=== PATIENT | female | born 2000 | race Two or more races ===

== ENCOUNTER 2023-01-08 20:46 | Emergency (ER) | payer MEDICAID ==
[~2023-01-08] VITALS: Ht 167.6 cm; Wt 81.6 kg
--- NOTE | 2023-01-08 21:00 | NUR ---
Dr. Zambrano at bedside for MSE.
[2023-01-08] MEDS ORDERED: KETOROLAC TROMETHAMINE 30 MG INJ IVP ONE (21:15)
[2023-01-08] MEDS ORDERED: diphenhydrAMINE 50 MG/1 ML VIAL IV ONE (21:15)
[2023-01-08] MEDS ORDERED: METOCLOPRAMIDE HCL 10 MG/2 ML VIAL IV ONE (21:15)
[2023-01-08] MEDS ORDERED: IV NS 1000 ML 1,000 ML IV ONE (21:15)
[2023-01-08 21:23] LABS: HEMATOCRIT 40.2 % (31.2-41.9); MEAN CORPUSCULAR HEMOGLOBIN 27.1 uug (24.7-32.8); MEAN CORPUSCULAR VOLUME 82.8 fL (75.5-95.3); PLATELET COUNT (AUTO) 275 K/uL (179-408)
[2023-01-08] MEDS ORDERED: diphenhydrAMINE 50 MG/1 ML VIAL ONE (21:23)
[2023-01-08] MEDS ORDERED: KETOROLAC TROMETHAMINE 30 MG INJ ONE (21:23)
[2023-01-08] MEDS ORDERED: METOCLOPRAMIDE HCL 10 MG/2 ML VIAL ONE (21:23)
[2023-01-08 21:54] LABS: CREATININE 0.8 mg/dL (0.6-1.3); MAGNESIUM 2.1 mg/dL (1.8-2.4); POTASSIUM 3.9 mmol/L (3.5-5.1)
[2023-01-08] MEDS ORDERED: DIPH25CA83 PO (23:08)
[2023-01-08] MEDS ORDERED: METO-295 PO (23:08)
[2023-01-08] MEDS ORDERED: NAPR-1164 PO (23:08)
[2023-01-08] MEDS ORDERED: BLOO-1730 MC (23:14)
--- NOTE | 2023-01-08 23:22 | NUR ---
Patient discharged to home in stable condition. Written and verbal after care instructions given. Patient verbalizes understanding of instructions. Stressed follow up or return to ER for worsening s/s. Patient out of ER with steady gait, no acute signs of distress, VSS, all belongings taken, IV site discontinued, provided with copies of lab results.
[2023-01-08 23:23] VITALS: BP 110/60
== END 2023-01-08 23:23 | disposition home or self-care (01) ==
LOC: ER 20:46
DX: G43.909 Migraine, unspecified, not intractable, without status migrainosus (principal); R73.03 Prediabetes; Z90.49 Acquired absence of other specified parts of digestive tract; Z79.1 Long term (current) use of non-steroidal anti-inflammatories (NSAID); Z79.899 Other long term (current) drug therapy
CPT/HCPCS: 99284; 96374; 96375; 96361; 80048; 83036; 83735; 85025; 36415; 93005; J1200; J1885; J2765; J7040; A4663